=== PATIENT | male | born 1960 | race Caucasian/White ===

== ENCOUNTER 2020-08-23 05:14 | Observation (INO) ==
--- NOTE | 2020-08-16 16:59 | History & Physical Report ---
Date of Service August 16, 2020 Assessment & Plan Admission and Anticipated Discharge Date Admission Date: PRE-OP Diagnosis: Left knee osteoarthritis Planned Procedure: Left total knee arthroplasty Plan: Patient is scheduled to undergo this procedure with Dr. Michael Toscano at the [facility] on August 23, 2020. Risks and complications of the procedure such as: Infection, bleeding, pain, scarring, nerve blood vessel damage, weakness, wound problems, stiffness, incomplete relief of symptoms, hardware failure, hardware loosening, wear, fracture, tendon or ligament injury, blood clots, embolism, heart attack, stroke and were explained to the patient at his visit today by Dr. Toscano. Informed consent form the procedure was obtained. Patient also understands risks of proceeding with surgical intervention during the COVID-19 pandemic. Patient's EKG and medical clearance are up-to-date. He will need to obtain an updated CBC with differential, complete metabolic panel, PT/INR, blood type and screen and a Covid PCR test. Patient states she will proceed to the hospital after his visit today to obtain these studies. During today's visit I discussed discharge planning with the patient, we talked about lectures offered by [facility] in regards to joint replacement surgery, discussed antibiotic use after total joint replacement surgery. Patient states he has a walker he will bring with him on the day of surgery. He states that he already has obtained a handicap placard for his vehicle. Advised him that he will be discharged from the hospital on opioid analgesics, and anti-inflammatory agents, a blood thinner, vitamin C and iron supplementation. Patient is scheduled for his 2-week postoperative follow- up visit with Louisa Marx PA-C on September 06 at 9:30 AM. He states that he plans on doing in-home physical therapy for the first 2 weeks postoperatively and then would like to transition to outpatient physical therapy after his 2- week follow-up at [facility] in [facility]. Patient verbalized understanding of all information provided during today's visit. He thanked us for the care that he has received. If he has questions or concerns should arise prior to his surgery, he will contact clinic. History of Present Illness Chief Complaint: Chief Complaint: Left knee pain Primary Care Provider: Abraham Perez MD History of Present Illness (including history relevant to procedure): This 60-year-old male, with longstanding left knee pain. 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 He developed blistering following the surgery and was concerned due to use of adhesives. In regards to the left knee he has had multiple cortisone injections and Euflexxa which had given him temporary relief. He currently rates his pain a 6/10. Review Of Systems: A 14 point review of systems performed is unremarkable except for those things stated in the HPI and past medical history Past Medical History: Problems: Osteoarthritis of left knee Pre-op testing Left knee pain Hypertension Hyperlipidemia Sleep apnea GERD Procedure History Procedure Procedure Date Comments Knee replacement 10/30/2016 Knee replacement 05/14/2016 REPAIR OF NASAL SEPTUM 12/2014 - Repeat REPAIR OF NASAL SEPTUM 09/2014 Inguinal hernia 06/2011 - Right Repair COLONOSCOPY & POLYPECTOMY 10/07/2009 Bilateral vasectomy 1996 Submucous resection of nasal turbinate 08/1987 - Repeat Submucous resection of nasal turbinate 01/1986 Appendectomy 1974 Tonsillectomy 1970 Allergies and Sensitivities: No Known Medication Allergies Family history: Heart disease, diabetes and cancer Social history: Patient denies tobacco or illicit drug use. He states that he occasionally consumes alcohol. Current Home Meds: (Last Updated 08/16 15:33) ALPRAZolam (ALPRAZolam 0.5 mg oral tablet) Responsible Provider: ABRAHAM PEREZ 01/10 15:40 acetaminophen (Tylenol) 1,000 mg PO as needed amLODIPine/hydroCHLOROthiazide/olmesartan (Tribenzor 40 mg-10 mg-25 mg oral tablet) 1 Unknown, oral amoxicillin (amoxicillin 500 mg oral capsule) 2,000 mg PO As indicated one hour before dental and other procedures as directed atorvastatin (Lipitor 40 mg oral tablet) 1 Unknown, oral traMADol (traMADol 50 mg oral tablet) Responsible Provider: ANA ROMAN 01/10 15:40 zolpidem (zolpidem 10 mg oral tablet) Responsible Provider: ABRAHAM PEREZ 01/10 15:40 Initial Wt: 08/16 116.7 kg 257 lb Allergies Allergy/AdvReac Type Severity Reaction Status Date / Time No Known Allergies Allergy Verified 08/02/20 15:59 Home Medications Medication Instructions Recorded Confirmed Type acetaminophen [Tylenol Extra 1,000 mg PO Q6H PRN 05/06/20 08/02/20 History Strength] alprazolam 0.5 mg PO DAILY PRN 05/06/20 08/02/20 History atorvastatin 40 mg PO QAM 05/06/20 08/02/20 History ibuprofen [Advil] 400 mg PO Q6H PRN 05/06/20 08/02/20 History dhsgxmrbpm-[id number]-ybnhhmcmb 1 tab PO QAM 05/06/20 08/02/20 History tramadol 50 mg PO BID PRN 05/06/20 08/02/20 History zolpidem 10 mg PO HS 05/06/20 08/02/20 History Past Med/Surg History Medical History Acid reflux hx no meds at present Anxiety History of anesthesia reaction WITH R TKA - SLOW TO WAKE UP Hyperlipidemia Hypertension Insomnia Osteoarthritis Ruptured lumbar disc HX Sleep apnea doesnt like cpap does not use Surgical History History of appendectomy History of colonoscopy History of esophagogastroduodenoscopy (EGD) History of nasal septoplasty x4 History of tooth extraction History of total knee replacement right Hx of eye surgery metal removed from eye > right Hx of inguinal hernia repair Hx of vasectomy Family History Mother Diabetes Brother Diabetes Social History Smoking Status: Never smoker Second Hand Exposure: Yes (parents smoked); Hx Alcohol Use: Yes Alcohol type: beer Hx Substance Use: No Preferred Language: Indian Communication Ability: Effective Electro Optical Engineer Required: No Beliefs That Will Affect Care: None Current Living Situation: Spouse Feels Safe at Home: Yes Assistive Devices: Glasses and Hearing Aid - Bilateral Review of Systems All systems reviewed & are unremarkable except as noted in HPI & below Physical Exam Physical Exam: Physical Exam: (relevant to the procedure, including heart and lung evaluation) General: Alert and oriented x3 with proper grooming and hygiene Eyes: Pupils are equal and reactive to light with accommodation. Extraocular movements are intact Throat: Deferred due to COVID-19 precautions Cardiac: Regular rate and rhythm with no murmurs or gallops appreciated Lungs: Clear to auscultation throughout no wheezing, rales or rhonchi Abdomen: Obese, nondistended, nontender with normoactive bowel sounds Extremities: Focusing on the patient's left lower extremity: Neurovascularly intact. + Medial joint line tenderness. - Morena's Ligamentous examination exhibits: Stable and unchanged. - Effusion Range of motion 5-100. Neuro: Cranial nerves II through XII intact no motor or sensory deficit Skin: Normal appearance no open skin areas or discharge Results & Data ([facility]) Diagnostic Findings Studies (relevant to the procedure): RADIOGRAPHS: left knee OA series which included bilateral hips to ankles, 45 degree flexion PA views, AP standing, and left knee lateral and sunrise views, which showed evidence of his prior right TKA with long stems. Left knee there is significant medial joint space narrowing with [id number], sclerosis, subchondral cysts. There is moderate degenerative changes in the patellofemoral joint as well. 9 degrees varus alignment. Moderatesevere degenerative changes left knee with 9 degrees varus alignment.
--- NOTE | 2020-08-17 09:37 | Anesthesiology Consultation ---
Date of Service August 17, 2020 Assessment & Plan (1) Encounter for pre-operative examination: COVID screening: Per assessment on 08/02: Travel screen negative, no known COVID- 19 positive contacts or current COVID-19 related symptoms. Surgeon arranged preop COVID testing (done 08/16; [facility])- results pending. Chart Review Chart Review: Acceptable Risk for Surgery and Patient NOT seen in Pre Admission Testing History Surgery Operation Date: 08/23/20 08:20 Proposed Procedures p Left Total Knee Arthroplasty - Michael Toscano MD Height/Weight Height: 5 ft 10 in Weight: 113.398 kg Allergies Allergy/AdvReac Type Severity Reaction Status Date / Time No Known Allergies Allergy Verified 08/02/20 15:59 Medications Home Medications Medication Instructions Recorded Confirmed Last Taken acetaminophen [Tylenol Extra 1,000 mg PO Q6H PRN 05/06/20 08/02/20 Unknown Strength] alprazolam 0.5 mg PO DAILY PRN 05/06/20 08/02/20 Unknown atorvastatin 40 mg PO QAM 05/06/20 08/02/20 Unknown ibuprofen [Advil] 400 mg PO Q6H PRN 05/06/20 08/02/20 Unknown cptvpwspbn-gnzojsvaw-igypdbigr 1 tab PO QAM 05/06/20 08/02/20 Unknown tramadol 50 mg PO BID PRN 05/06/20 08/02/20 Unknown zolpidem 10 mg PO HS 05/06/20 08/02/20 Unknown Past Medical History Medical History Acid reflux hx/controlled Anxiety Hyperlipidemia Hypertension Insomnia Obesity Osteoarthritis Ruptured lumbar disc hx Sleep apnea Doesn't tolerate CPAP (non-compliant) Past Family History Family History Mother Diabetes Brother Diabetes Past Surgical History Surgical History History of anesthesia reaction "slow to wake" with Right TKA History of appendectomy History of colonoscopy History of esophagogastroduodenoscopy (EGD) History of nasal septoplasty x4 History of tooth extraction History of total knee replacement right Hx of eye surgery metal removed from eye > right Hx of inguinal hernia repair Hx of vasectomy Social History Smoking Status: Never smoker Do You Dip or Chew Tobacco: No Hx Alcohol Use: Yes Alcohol type: beer alcohol intake frequency: a few times a month Hx Substance Use: No substance use type: does not use Testing Laboratory Results 08/16/20 WBC 7.18 H/H 15.2/42.2 PLATELETS 239 SODIUM 140 POTASSIUM 3.5 CHLORIDE 104 CO2 30 BUN 27 CREATININE 1.1 GLUCOSE 76 PT 10.4 PTT 28.7 INR 1.0 Electrocardiogram Date: 05/18/20 Findings: + NSR @ (71) Echocardiogram Date: 08/12/14 EF: 55-60% LV function is normal. Dilated LA chamber size, LV chamber size, and RV chamber size. Moderately severe LVH. Calcified aortic root. Aortic sclerosis. Minimally increased aortic root diameter at 3.8 cm. Mild pulmonary hypertension at 39 mmHg.
[2020-08-23] MEDS ORDERED: Scopolamine 1 MG TDSY TD SCH (06:00)
[2020-08-23] MEDS ORDERED: LR 500ML BOLUS, THEN 15ML/HR IV SCH (06:00)
[2020-08-23] MEDS ORDERED: CeleBREX 200 MG CAP PO SCH (06:00)
[2020-08-23] MEDS ORDERED: ROPIVACAINE 0.5% HCL/PF 150 MG, BUPIVACAINE 0.75% MPF 20 ML, EPINEPHrine 0.15 MG, Ketor... INFIL SCH ×2 (06:00)
[2020-08-23] MEDS ORDERED: ROPIVACAINE 0.5% HCL/PF 150 MG, BUPIVACAINE 0.75% MPF 20 ML, EPINEPHrine 30MG/30ML (OR ... INFIL SCH (06:00)
[2020-08-23] MEDS ORDERED: TRANEXAMIC ACID 1,000 MG **IV Intra-op IV SCH (06:00)
[2020-08-23] MEDS ORDERED: TRANEXAMIC ACID 1,000 MG **IV Pre-op IV SCH (06:00)
[2020-08-23] MEDS ORDERED: LR 60ML/HR IV SCH (06:00)
[2020-08-23] MEDS ORDERED: BUPIVACAINE 0.5 % 5 MG/1 ML PF 10ML VIAL ONE (06:19)
[2020-08-23] MEDS ORDERED: EPINEPHrine INJ 1 MG/ML AMP ONE (06:19)
[2020-08-23] MEDS ORDERED: ROPIVACAINE 0.5% 5 MG/ML 30 ML VIAL ONE (06:20)
[2020-08-23] MEDS ORDERED: MIDAZOLAM HCL 1 MG/ML 2ML VIAL ONE (06:39)
--- NOTE | 2020-08-23 06:39 | History & Physical Bridge Note ---
Date of Service August 23, 2020 History & Physical Bridge Note I have examined the patient, reviewed the History & Physical and in the interval since the performance of the History & Physical I have noted the following changes of clinical significance: no changes noted Patient is aware of the risks, is asymptomatic, and tested negative for COVID- 19.
[2020-08-23] MEDS ORDERED: fentaNYL citrate 100 MCG/2 ML VIAL ONE (06:40)
[2020-08-23] MEDS ORDERED: ORTHO JOINT ANESTHETIC ONE (06:42)
[2020-08-23] MEDS: ceFAZolin 2000MG 2,000 MG/15 ML SYR IV SCH ×3 (07:05→16:01)
[2020-08-23] MEDS ORDERED: ePHEDrine sulfate 50 MG/ML AMP IV PRN (07:22)
[2020-08-23] MEDS ORDERED: HYDROmorphone INJ 1 MG/ML SYRINGE IV PRN ×2 (07:22→10:19)
[2020-08-23] MEDS ORDERED: fentaNYL citrate 100 MCG/2 ML VIAL IV PRN (07:22)
[2020-08-23] MEDS ORDERED: ATROPINE SULFATE 0.1 MG/ML 10ML SYR IV PRN (07:22)
[2020-08-23] MEDS ORDERED: ONDANSETRON INJ 2 MG/ML 2 ML VIAL IV PRN ×2 (07:22→10:19)
[2020-08-23] MEDS ORDERED: PHENYLEPHRINE 100MCG/ML 5ML SYR IV PRN (07:22)
[2020-08-23] MEDS ORDERED: LABETALOL HCL IV 5 MG/ML 20ML IV PRN (07:22)
[2020-08-23] MEDS ORDERED: ONDANSETRON INJ 2 MG/ML 2 ML VIAL ONE (09:37)
[2020-08-23] MEDS ORDERED: PHENYLEPHRINE 100MCG/ML 5ML SYR ONE (09:37)
[2020-08-23] MEDS ORDERED: PROPOFOL IV EMULSION 10 MG/ML 20 ML VIAL IV ONE ×2 (09:37→09:45)
--- NOTE | 2020-08-23 10:13 | Post Operative Brief Note ---
Immediate Post Op Note v1 Date of Surgery August 23, 2020 Pre & Post Diagnosis Operation Date: 08/23/20 07:00 Pre-Op Diagnosis: Left Knee Osteoarthritis Post-Op Diagnosis: Left Knee Osteoarthritis I identified the patient and participated in the time-out.: Yes Procedure Operation Date: 08/23/20 07:00 Actual Procedures p Left Total Knee Arthroplasty(Left) - Michael Toscano MD Surgeon Michael Toscano MD Nuclear Criticality Safety Engineer Martha Marx PA-C (No fellow avail) Estimated Blood Loss 100 Findings Consistent with Post-Op Diagnosis Fluids 1700 cc Specimens Left knee Contents Anesthesia Type MAC Spinal Regional Complications none
--- NOTE | 2020-08-23 10:14 | Operative Report ---
Post Operative Report Pre & Post Diagnosis Operation Date: 08/23/20 07:00 Pre-Op Diagnosis: Left Knee Osteoarthritis Post-Op Diagnosis: Left Knee Osteoarthritis I identified the patient and participated in the time-out.: Yes Procedure Operation Date: 08/23/20 07:00 Actual Procedures p Left Total Knee Arthroplasty(Left) - Michael Toscano MD Surgeon Michael Toscano MD Chimney Supervisor Brick Martha Marx PA-C (No fellow avail) Estimated Blood Loss 100 Findings See Below Examined Under Anesthesia: ROM -- There was 5 degrees to 120 degrees of flexion Ligamentous examination -- revealed stable Marian, posterior drawer, varus and valgus stress at 5 and 30 degrees. Outerbridge Type IV changes of Medial compartment and Trochlea, Type II-III changes Patella and Lateral compartment. Fluids 1700 cc Specimens Left knee contents Anesthesia Type MAC Spinal Regional Complications none Indications This is a 60-year-old male who has clinical and radiographic findings consistent with osteoarthritis of the a left knee. I recommended that a left total knee replacement be performed. The patient understands the risks of surgery, which include but not limited to: bleeding, infection, re-operation, damage to nerves and arteries, continued knee pain, knee stiffness, DVT, and . The patient understands all of these instructions and explanations, all of his questions have been satisfactorily addressed and the patient has elected to proceed. Informed consent was signed. Description of Procedure IMPLANTS: 1. Femur: Triathlon #5 Left PS. 2. Tibia: Triathlon #6 Wyn[place]. 3. Insert: Triathlon #6 x 11 mm PS X3 poly. 4. Patella: Triathlon A38 x 11 mm X3 poly. 5. Simplex cement. Martha Marx PA-C is assisting with positioning, retracting, and closure due to fellow not available. PROCEDURE: The patient was taken to the Operating Room and placed in the supine position after spinal and adductor canal nerve block was administered. My initials and a multidisciplinary time-out were used to identify the left leg as the correct operative limb. A tourniquet was placed high in the thigh. Prior to the incision, 2 grams of intravenous Ancef were given. The left leg was then prepped and draped in a standard sterile fashion. An Esmarch was used to exsanguinate the leg and the tourniquet was inflated to 250 mmHg. The planned mid-line 20 cm incision was created exposing the extensor mechanism. The medial parapatellar arthrotomy was made and the patella was everted. The patella was addressed first. It was prepared by reaming from 26 mm down to 15 mm. An A38 button was found to fit best. The peg holes were made in the standard fashion. The femur was addressed next and the guide adrian was placed intramedullary. The initial cutting block was placed with 5 degrees of valgus and removing 10 mm for the distal cut. The cut was made and the 4-in-1 cutting block for a size 5 femur was placed. These cuts and the cuts to place the box were made in the s tandard fashion. Our attention was then drawn to the tibia cut with the external cutting guide, taking 4 mm from the medial low side. There was sufficient extension and flexion gap to fit a 11 mm spacer. A #6 Tibial baseplate fit well. A trial with a 11 mm spacer showed excellent stability in both flexion and extension, with good ligament balance, and thumbs free patellar tracking. Range of motion of 0-120 degrees. The tibial baseplate was prepped for the keel and stem. All components were removed. The tourniquet was deflated. Hemostasis was obtained. 90 ml of total knee cocktail were injected into the soft tissues and periosteum. A bone plug was placed in the femur and covered with bone wax. After a 15 minute break, the limb was exsanguinated again and the tourniquet was re-inflated. All surfaces were copiously irrigated prior to placement of the components. The femoral component followed by Tibial baseplate were cemented in place and a 11 mm trial placed and the 11 mm X3 poly was later placed. Next, the patellar button was placed using the second batch of Simplex cement. Again the range of motion and stability were excellent and unchanged. The extensor mechanism was closed with 1-0 and 0 Vicryl with the knee bent approximately 60 degrees in a standard fashion. The peritenon and deep fascia was closed with 2-0 Vicryl. The subcutaneous layer was closed with 3-0 Vicryl. The skin was closed with eduardo. The limb was cleaned and dried. Xeroform, 4x4 dressing was placed over top followed by ABDs, sterile Webril, and a foot to thigh Yogesh bandage. The patient was then transferred to the Recovery Room in stable condition. The sponge and needle counts were correct. POST-OP INSTRUCTIONS: The patient will be WBAT. The patient will be admitted to the hospital. The patient will use the knee immobilizer when ambulating and standing until good quad control is achieved. Labs will be obtained during the stay. DVT prophylaxis will included aspirin for 6 weeks, TEDs, and mechanical foot pumps. The dressing will be changed prior to their discharge. I attest to the content of the Intraoperative Record and any orders documented therein. Any exceptions are noted below.
[2020-08-23] MEDS ORDERED: METOCLOPRAMIDE HCL INJ 5 MG/ML 2 ML VIAL IV PRN (10:19)
[2020-08-23] MEDS ORDERED: MAGNESIUM HYDROXIDE SUSP 30 ML UDC PO PRN (10:19)
[2020-08-23] MEDS ORDERED: diphenhydrAMINE Capsule 25 MG CAP PO PRN (10:19)
[2020-08-23] MEDS ORDERED: bisacodyL 10 MG SUPP PR PRN (10:19)
[2020-08-23] MEDS ORDERED: diphenhydrAMINE 50 MG/ML VIAL IV PRN (10:19)
[2020-08-23] MEDS ORDERED: NALOXONE HCL 0.4 MG/1 ML VIAL/CARP IV PRN (10:19)
[2020-08-23] MEDS ORDERED: ALPRAZolam 0.5 MG TABLET PO PRN ×2 (10:27→10:33)
--- NOTE | 2020-08-23 10:36 | Operative Report ---
Post Operative Report Pre & Post Diagnosis Operation Date: 08/23/20 07:00 Pre-Op Diagnosis: Left Knee Osteoarthritis Post-Op Diagnosis: Left Knee Osteoarthritis I identified the patient and participated in the time-out.: Yes Procedure Operation Date: 08/23/20 07:00 Actual Procedures p Left Total Knee Arthroplasty(Left) - Michael Toscano MD Surgeon Michael Toscano MD Buyer Tobacco Head Martha Marx PA-C (No fellow avail) Estimated Blood Loss 100 Findings Consistent with Post-Op Diagnosis Specimens bone and soft tissue Complications none Description of Procedure See Dr Toscano operative report. I was nurse first assist during entire case to include prepping, draping, limb and instrument handling, wound closure, dressings. I attest to the content of the Intraoperative Record and any orders documented therein. Any exceptions are noted below.
--- NOTE | 2020-08-23 10:54 | XRay Report ---
XR knee LT 1 or 2V routine HISTORY: 60 years-old Male Surgical Post Op [evaluate total joint arthroplasty COMPARISON: Left knee radiographs 01/11/2020 TECHNIQUE: 2 views of the left knee FINDINGS: Left knee total joint arthroplasty and patella resurfacing. Anterior midline skin eduardo are noted a long with expected postsurgical soft tissue swelling and deep tissue air. There is no acute fracture, or opaque foreign body. IMPRESSION: Left knee total joint arthroplasty and patella resurfacing with expected postoperative ch anges. ACT 112: Negative or not required by law. The above report was generated using voice recognition software. It may contain grammatical, syntax o r spelling errors. Electronically signed by: Abel Blackman M.D. 08/23/2020 10:53 AM
--- NOTE | 2020-08-23 10:54 | Anesthesiology Progress Note ---
Date of Service August 23, 2020 Anesthesia Post Procedure Vital Signs Vital Signs: Temp Pulse Pulse Resp BP Pulse Ox 08/23/20 10:45 53 L 14 105/74 94 08/23/20 10:35 53 L 19 111/79 97 08/23/20 10:25 61 22 111/77 97 08/23/20 10:19 36.4 C L 75 14 107/78 97 08/23/20 05:46 36.7 C 64 20 141/90 H 98 Transfer of Care Handoff Completed per policy Notes Mental Status: alert / awake / arousable Patient Amnestic to Procedure: Yes Nausea / Vomiting: adequately controlled Pain: adequately controlled Airway Patency, RR, SpO2: stable & adequate BP & HR: stable & adequate Hydration State: stable & adequate Neuraxial Anesthesia: was administered and sensory block is resolving Anesthetic Complications: no major complications apparent and Pt Satisfied with anesthetic care
[2020-08-23] MEDS ORDERED: SODIUM CHLORIDE 0.9% 1000ML 1,000 ML IV SCH (12:00)
[2020-08-23] MEDS: oxyCODONE HCL IR 5 MG TAB (IMMEDIATE RELEASE) PO PRN ×2 (13:17→18:57)
--- NOTE | 2020-08-23 14:57 | Orthopedic Progress Note ---
Date of Service August 23, 2020 Assessment & Plan (1) Knee osteoarthritis: POD #0 s/p Left TKA, doing as well as expected. Resume diet. WBAT with walker, and knee immobilizer for max. 48 hours/until demonstrates good quad control. OOB to chair. Continue pain control. Check labs tomorrow. DVT prophylaxis: TEDs 3 weeks, foot pumps while in hospital, ASA 81 mg BID for 6 weeks. PT/OT. D/C planning. Present on Admission?: Yes Admission and Anticipated Discharge Date Admission Date: August 23, 2020 Subjective Doing well Review of Systems Review of Systems: All systems reviewed & are unremarkable except as noted in HPI & below Physical Exam Physical Exam: LLE: Dressing is clean, dry, intact. Calf is soft and non- tender. Sensation to light touch is intact. BCR < 2sec. Wiggling toes and ankle. Able to preform a straight leg raise. Results & Data ([facility]) Vital Signs (Past 12 Hours) Vital Signs Temp Pulse Pulse Resp BP BP Pulse Ox 08/23/20 14:19 36.5 C 58 L 16 123/76 95 08/23/20 13:18 36.6 C 56 L 16 122/76 96 08/23/20 12:26 55 L 16 120/80 97 08/23/20 11:44 51 L 16 121/82 97 08/23/20 11:15 36.4 C L 58 L 16 108/70 96 08/23/20 10:55 36.6 C 56 L 12 113/77 94 08/23/20 10:45 53 L 14 105/74 94 08/23/20 10:35 53 L 19 111/79 97 08/23/20 10:25 61 22 111/77 97 08/23/20 10:19 36.4 C L 75 14 107/78 97 08/23/20 05:46 36.7 C 64 20 141/90 H 98 Diagnostic Findings I reviewed the AP and Lateral of the left knee showed evidence of cemented left TKA.
[2020-08-23] MEDS: ACETAMINOPHEN 500 MG TAB PO SCH ×2 (14:59→21:06)
[2020-08-23] MEDS: Scopolamine CHECK PATCH PLACEMENT SCH (16:02)
[2020-08-23] MEDS: FERROUS GLUCONATE 324 MG TAB PO SCH (18:00)
[2020-08-23] MEDS: ASCORBIC ACID 500 MG TAB PO SCH (18:00)
[2020-08-23] MEDS ORDERED: ZOLPIDEM TARTRATE 10 MG TAB PO SCH (21:00)
[2020-08-23] MEDS ORDERED: SENNA 8.6 MG TAB PO SCH (21:00)
[2020-08-23] MEDS: DOCUSATE SODIUM 100 MG CAP PO SCH (21:07)
[2020-08-24] MEDS: oxyCODONE HCL IR 5 MG TAB (IMMEDIATE RELEASE) PO PRN ×4 (00:09→13:14)
[2020-08-24] MEDS: Scopolamine CHECK PATCH PLACEMENT SCH ×2 (00:10→07:19)
[2020-08-24] MEDS: ceFAZolin 2000MG 2,000 MG/15 ML SYR IV SCH (00:10)
[2020-08-24] MEDS: ACETAMINOPHEN 500 MG TAB PO SCH ×2 (05:20→13:14)
[2020-08-24 06:18] LABS: Hematocrit (blood only) 35.7 % (42-52); Hemoglobin 12.8 g/dL (14.0-18.0); Mean Corpuscular Hemoglobin 31.7 pg (25-34); Mean Corpuscular Hgb Conc 35.9 g/dL (32-36); Mean Corpuscular Volume 88.4 fL (80-100); Platelet Count 202 K/uL (130-400); RDW Coefficient of Variation 13.3 % (11.5-14.5); RDW Standard Deviation 42.3 fL (36.4-46.3); Red Blood Count 4.04 M/uL (4.7-6.1); White Blood Count 11.25 K/uL (4.8-10.8)
[2020-08-24 06:49] LABS: BUN Creatinine Ratio 17.5 (10-20); Calcium 8.3 mg/dl (8.5-10.1); Creatinine Clr Calc Pharmacy 95.9 ml/min; Est GFR (Non-African American) 79.3
[2020-08-24] MEDS: ASCORBIC ACID 500 MG TAB PO SCH (07:18)
[2020-08-24] MEDS: FERROUS GLUCONATE 324 MG TAB PO SCH (07:18)
[2020-08-24] MEDS: DOCUSATE SODIUM 100 MG CAP PO SCH (08:50)
[2020-08-24] MEDS ORDERED: ATORVASTATIN 40 MG TAB PO SCH (09:00)
[2020-08-24] MEDS ORDERED: MULTIVITAMIN TAB PO SCH (09:00)
[2020-08-24] MEDS ORDERED: OLMESARTAN AMLODIPIN HCTHIAZID PO SCH (09:00)
[2020-08-24] MEDS ORDERED: hydroCHLOROthiazide 25 MG TAB PO SCH (09:00)
[2020-08-24] MEDS ORDERED: ASPIRIN 81 MG ECTAB PO SCH (09:00)
[2020-08-24] MEDS ORDERED: amLODIPine BESYLATE 5 MG TAB PO SCH (09:00)
[2020-08-24] MEDS ORDERED: OLMESARTAN MEDOXOMIL 40 MG TAB PO SCH (09:00)
--- NOTE | 2020-08-24 10:06 | Orthopedic Progress Note ---
Date of Service August 24, 2020 Assessment & Plan (1) Knee osteoarthritis: POD #1 s/p Left TKA, doing as well as expected. Resume diet. WBAT with walker, and knee immobilizer for max. 48 hours/until demonstrates good quad control. OOB to chair. Continue pain control. DVT prophylaxis: TEDs 3 weeks, foot pumps while in hospital, ASA 81 mg BID for 6 weeks. PT/OT. Re-eval for possible discharge this afternoon and will change dressing if able to be d/c'd. D/C planning. Admission and Anticipated Discharge Date Admission Date: August 23, 2020 Subjective Pain starting to increase, but oral pain medication is working Physical Exam Physical Exam: LLE: Dressing is clean, dry, intact. Calf is soft and non- tender. Sensation to light touch is intact. BCR < 2sec. Wiggling toes and ankle. Able to preform a straight leg raise. Results & Data ([facility]) Vital Signs (Past 12 Hours) Vital Signs Temp Pulse Resp BP Pulse Ox 08/24/20 04:07 36.4 C L 73 16 130/79 96 08/24/20 00:02 36.4 C L 69 14 124/79 97 Laboratory Results 08/24/20 08/24/20 08/24/20 Range/Units 07:54 05:56 05:56 WBC 11.25 H (4.8-10.8) K/uL RBC 4.04 L (4.7-6.1) M/uL Hgb 12.8 L (14.0-18.0) g/dL Hct 35.7 L (42-52) % MCV 88.4 (80-100) fL MCH 31.7 (25-34) pg MCHC 35.9 (32-36) g/dL RDW Std Deviation 42.3 (36.4-46.3) fL RDW Coeff of [place] 13.3 (11.5-14.5) % Plt Count 202 (130-400) K/uL MPV 10.0 (7.4-10.4) fL Sodium 138 (136-145) mmol/L Potassium 3.8 (3.5-5.1) mmol/L Chloride 107 (98-107) mmol/L Carbon Dioxide 28 (21-32) mmol/L Anion Gap 3.0 (3-11) BUN 18 (7-18) mg/dl Creatinine 1.01 (0.6-1.4) mg/dl Est Cr Clr Drug Dosing 95.9 ml/min Est GFR ( Amer) 92.0 Est GFR (Non-Af Amer) 79.3 BUN/Creatinine Ratio 17.5 (10-20) Glucose 121 H (70-99) mg/dl Calcium 8.3 L (8.5-10.1) mg/dl
--- NOTE | 2020-08-24 16:55 | Discharge Summary ---
Date of Service August 24, 2020 Admission HPI Per Admitting Provider History of Present Illness (including history relevant to procedure): This 60-year-old male, with longstanding left knee pain. 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 He developed blistering following the surgery and was concerned due to use of adhesives. In regards to the left knee he has had multiple cortisone injections and Euflexxa which had given him temporary relief. He currently rates his pain a 6/10. Review Of Systems: A 14 point review of systems performed is unremarkable except for those things stated in the HPI and past medical history Past Medical History: Problems: Osteoarthritis of left knee Pre-op testing Left knee pain Hypertension Hyperlipidemia Sleep apnea GERD Procedure History Procedure Procedure Date Comments Knee replacement 10/30/2016 Knee replacement 05/14/2016 REPAIR OF NASAL SEPTUM 12/2014 - Repeat REPAIR OF NASAL SEPTUM 09/2014 Inguinal hernia 06/2011 - Right Repair COLONOSCOPY & POLYPECTOMY 10/07/2009 Bilateral vasectomy 1996 Submucous resection of nasal turbinate 08/1987 - Repeat Submucous resection of nasal turbinate 01/1986 Appendectomy 1974 Tonsillectomy 1970 Allergies and Sensitivities: No Known Medication Allergies Family history: Heart disease, diabetes and cancer Social history: Patient denies tobacco or illicit drug use. He states that he occasionally consumes alcohol. Current Home Meds: (Last Updated 08/16 15:33) ALPRAZolam (ALPRAZolam 0.5 mg oral tablet) Responsible Provider: ABRAHAM PEREZ 01/10 15:40 acetaminophen (Tylenol) 1,000 mg PO as needed amLODIPine/hydroCHLOROthiazide/olmesartan (Tribenzor 40 mg-10 mg-25 mg oral tablet) 1 Unknown, oral amoxicillin (amoxicillin 500 mg oral capsule) 2,000 mg PO As indicated one hour before dental and other procedures as directed atorvastatin (Lipitor 40 mg oral tablet) 1 Unknown, oral traMADol (traMADol 50 mg oral tablet) Responsible Provider: ANA ROMAN 01/10 15:40 zolpidem (zolpidem 10 mg oral tablet) Responsible Provider: ABRAHAM PEREZ 01/10 15:40 Initial Wt: 08/16 116.7 kg 257 lb Principal Diagnosis Left Knee Osteoarthritis Discharge Data Allergies Allergy/AdvReac Type Severity Reaction Status Date / Time No Known Allergies Allergy Verified 08/23/20 05:40 Procedures Performed Operation Date: 08/23/20 07:00 Actual Procedures p Left Total Knee Arthroplasty(Left) - Michael Toscano MD Ordered Studies 08/23/20 05:00 US - OR guided needle [facility] Hospital Course (1) Knee osteoarthritis: 60-year-old gentleman underwent a left total knee replacement by Dr. Toscano at [facility] on 08/23/2020. Anesthesia included a spinal anesthetic with a left adductor canal block. Antibiotic pre and postop cons isted of Ancef. Patient tolerated surgery without complication. He was then admitted to the floor for observation. Patient's pain was controlled with p.o. medication. He tolerated a regular p.o. diet and fluids. He has been able to urinate. His vital signs remained stable. Postop day 1 blood work within normal limits. DVT prophylaxis in-house consists of knee-high ESTER hose foot pumps and aspirin 81 mg twice daily. On postop day 1 patient tolerated a.m. PT and OT. He was seen by Dr. Toscano and was deemed stable to discharge home to his with home health physical therapy. Patient's postoperative dressings were removed and the left knee incision revealed eduardo intact clean dry and ABD was applied followed by Tubigrip dressing. Upon discharge patient will receive home health physical therapy, with the use of a walker, and left knee immobilizer for another 24 hours with ambulation. Patient will keep his incision covered with a dry dressing and Tubigrip. He may shower but not submerge. He is allergic to adhesive therefore no Silverlon dressing or Tegaderm was applied over wound. Patient will take Tylenol 1000 mg every 8 hours for mild to moderate pain and oxycodone 5 mg 1-2 every 4-6 hours as needed for severe pain. He will also use eZY WRAP gel pack at least 3-5 times a day for 10 to 20 minutes. Additional medications will include vitamin C twice a day for 2 weeks and iron twice a day for 2 weeks. DVT prophylaxis will consist of aspirin 81 mg twice a day for a total of 6 weeks as well as knee-high ESTER hose for 2 weeks until follow-up. Patient was instructed to contact the office if he has any problems questions or concerns or for emergent issues to go to the emergency room. He has a follow-up scheduled in our office 2 weeks postop. Please see below for more detailed discharge instructions. Total Time Total Time Spent Total Time Spent (In Minutes): 20min Discharge Plan Discharge Items Patient Disposition: Home - Self-Care Reason For Visit: Left Knee Osteoarthritis Discharge Diagnosis: Left Knee Osteoarthritis Activity: As commented below Bathing: Keep incision dry Exercise/Sports: Wait until after follow-up appointment Exercise Comment: follow therapy protocol Non-emergency contact: Surgeon Call non-emergency contact if: your pain is not controlled, your temperature is above 101.5, your wound has increased redness and your wound has increased drainage Follow-up/Referrals: Clarissa Marx P.[email or web address] [Physician [employer]] - 09/06/20 9:30 am Abraham Perez MD [Primary Care Provider] - Diet: Regular Addtl Attending Provider Instructions: Post-operative Instructions Pain Expect to be in a fair amount of pain after surgery. Remember, our goal is not to eliminate your pain, but to make it tolerable. It is a good idea to stay ahead of your pain by taking the medications you were prescribed once you get home. Typically, the pain starts improving 3-7 days after surgery. You should start weaning off the narcotic pain medication (oxycodone) as soon as your pain improves. Please call our office if your pain is not adequately controlled. You can take tylenol 1000mg every 8hrs for mild to moderate pain. Ice Ice your operative site at least 5 times a day for 15-30 minutes at a time. Make sure you have a thin cloth between the ice or cooling unit and your skin to prevent juan bite. This is especially important if you received a nerve block. Continue icing your operative site for the first 5-7 days after surgery, then as needed. Diet/Nausea/Vomiting Start by drinking clear liquids and eating crackers. If you can tolerate this, then you may resume your normal diet. If you feel nauseated or vomit, take Zofran/ondansetron (if prescribed). Please call our office if you have intractable nausea or vomiting, or, if after hours, you may go to the Emergency Room for help. Constipation Constipation is a common side effect of narcotic pain medication. If you have not had a bowel movement within 2 days after surgery, we recommend purchasing an over the counter laxative such as Milk of Magnesia, Dulcolax, or Miralax from a local pharmacy, and taking it as instructed. Call our clinic if any questions. Weight bearing and Range of Motion. Weightbearing as tolerated with walker. No restrictions with range of motion. *KNEE IMMOBILIZER x 48hrs AFTER SURGERY WHILE AMBULATING AND THEN CAN STOP (CONTINUE IF YOU DO NOT HAVE GOOD QUAD CONTROL)* Physical therapy Initially you will start with home health physical therapy. At our first visit with at our office we will provide you with script for outpatient physical therapy. Wound care and showering We will inspect your wound at your first post-operative visit, and will plan to remove your eduardo at that time. Until then please keep the incision clean and dry and covered with dry dressings. Showering is allowed after surgery. But you need to apply waterproof dressings to avoid getting wet. Do not scrub. The wound should not be submerged underwater (i.e. in a bathtub or pool) until at least 4 weeks after surgery ESTER stockings If you were given white stockings, these are to be worn at all times except to shower and sleep (on both legs) for the first 2 weeks after surgery. We will discuss removal at your first follow-up appointment. Driving You may not drive while taking narcotic pain medication. We will discuss return to driving at your first follow-up appointment. Return To Work Your return to work depends on what surgery was done and what type of work you do. Please bring any paperwork your employer needs completed to your first post-operative visit. Also, bring a description of your job duties, as this helps us to understand what risks you may face at work. Travel Avoid long distance travel (greater than 1 hour) in airplanes and cars for the first 6 weeks after surgery if possible. If you must travel, please let us know so we can discuss additional measures to prevent blood clots. Follow-up You should have a follow-up appointment already scheduled for 2 weeks after surg gibson. If not, please contact our office to make this appointment before you leave the hospital. When to call the office [phone] It is normal to have swelling and bruising in the limb that was operated on. This will improve with time. It is also normal to have fevers for the first 2 days after surgery. Reasons you should call your doctor include: Uncontrolled pain; Nausea, vomiting, or constipation that does not improve with medication; Fevers over 101.5, chills, sweats; Drainage or bleeding from the wound; Foul odor; Spreading areas of redness; Any other concerns. NEW MEDICATIONS: new medications will be sent to your pharmacy: oxycodone, iron, vit c, tylenol, aspirin. Pending Studies at Discharge: No Stand-Alone Forms: [facility], Opioid Pain Management Medications and DC Order Prescriptions: New aspirin 81 mg Tablet,Delayed Release (Dr/Ec) 81 mg PO BID 42 Days Qty: 84 RF: 0 acetaminophen 500 mg Tablet 1,000 mg PO Q8 PRN (Reason: pain) Qty: 60 RF: 0 ascorbic acid (vitamin C) [Vitamin C] 500 mg Tablet 500 mg PO BIDM 14 Days Qty: 28 RF: 0 oxycodone 5 mg Tablet 5 - 10 mg PO Q4H PRN (Reason: pain) Qty: 30 RF: 0 ferrous gluconate 324 mg (38 mg iron) Tablet 324 mg PO BIDM 14 Days Qty: 28 RF: 0 Continued atorvastatin 40 mg Tablet 40 mg PO QAM RF: 0 alprazolam 0.5 mg Tablet 0.5 mg PO DAILY PRN (Reason: Anxiety) RF: 0 zolpidem [Ambien] 10 mg Tablet 10 mg PO HS RF: 0 junnjczgsn-jztlsyzwn-enyxujshf 40-10-25 mg Tablet 1 tab PO QAM RF: 0 Discontinued tramadol 50 mg Tablet 50 mg PO BID PRN (Reason: Pain) RF: 0 acetaminophen [Tylenol Extra Strength] 500 mg Tablet 1,000 mg PO Q6H PRN (Reason: Pain) RF: 0 ibuprofen [Advil] 200 mg Tablet 400 mg PO Q6H PRN (Reason: Pain) RF: 0 Discharge Orders: Discharge Order (Routine); Ordered 08/24/20 Ordered By: Clarissa Marie/Other Patient Handouts: How Your Knee Works, Total Knee Replacement, Understanding Knee Replacement, After Knee Replacement: Back at Home, Knee Replace First Month, Home Safety After Joint Surgery, Knee Replace Swelling, Knee Replacement Knee Health, After Knee Arthroscopy Recovering ..., Knee Replace After Hospital Admission Data Admit Date/Time: 08/23/20 10:19 Attending Provider: Michael Toscano Admit Provider: Michael Toscano Primary Care Provider: Abraham Perez Other Interventions: Discharge Summary Assessment (RN) Last Done: 08/24/20 12:36
== END 2020-08-24 13:40 | disposition home or self-care (01) ==
LOC: ASU 05:14 → 3E 05:14